=== PATIENT | female | born 1950 | race Caucasian/White ===

== ENCOUNTER 2025-04-08 11:19 | Inpatient (IN) | payer BC, MEDICARE ==
[2025-04-08] MEDS: Acetaminophen/HYDROcodone 325-5 MG Tab PO ONE (13:15)
[2025-04-08] MEDS: Ketorolac 30 MG/ML SDV IM ONE (13:18)
[2025-04-08 15:17] LABS: PLATELET COUNT,PLT 330.0 K/uL (130-375); RED BLOOD CELL COUNT 3.98 M/uL (3.77-5.24); WHITE BLOOD CELL COUNT,WBC 5.8 K/uL (3.2-11.0)
[2025-04-08] MEDS ORDERED: Sodium Chloride 0.9% 10 ML Syringe FLUSH PRN ×2 (15:57→16:12)
[2025-04-08] MEDS ORDERED: Ondansetron 4 MG/2 ML SDV IV PRN (16:12)
[2025-04-08] MEDS ORDERED: Naloxone 0.4 MG/ML SDV IVPUSH PRN (16:12)
[2025-04-08] MEDS: Heparin Sodium 5,000 Units/ML Vial SUBCUT SCH (17:02)
[2025-04-08] MEDS: Sennosides/Docusate Sodium 50-8.6 MG Tab PO SCH (21:12)
[2025-04-09 05:43] LABS: PLATELET COUNT,PLT 296.0 K/uL (130-375); RED BLOOD CELL COUNT 3.64 M/uL (3.77-5.24); WHITE BLOOD CELL COUNT,WBC 3.7 K/uL (3.2-11.0)
[2025-04-09 06:01] LABS: BLOOD UREA NITROGEN,BUN 15.0 mg/dL (7-18); CARBON DIOXIDE,CO2 31.0 mmol/L (21-32); CHLORIDE,CL 91.0 mmol/L (100-108); CREATININE 0.7 mg/dL (0.6-1.0); EST CRCL DRUG DOSING (CG) 73.69 mL/min; ESTIMATED GFR 91.0 mL/min (>60); GLUCOSE RANDOM 85.0 mg/dL (74-106); SODIUM,NA 130.0 mmol/L (140-148)
[2025-04-09 06:05] LABS: POTASSIUM,K 2.7 mmol/L (3.6-5.2)
[2025-04-09] MEDS: Potassium Chloride 20 MEQ Tab.ER PO ONE ×2 (08:47→13:34)
[2025-04-09] MEDS: Heparin Sodium 5,000 Units/ML Vial SUBCUT SCH (11:18)
[2025-04-10 05:58] LABS: BLOOD UREA NITROGEN,BUN 9.0 mg/dL (7-18); CARBON DIOXIDE,CO2 28.0 mmol/L (21-32); CHLORIDE,CL 99.0 mmol/L (100-108); CREATININE 0.6 mg/dL (0.6-1.0); EST CRCL DRUG DOSING (CG) 85.97 mL/min; ESTIMATED GFR 94.0 mL/min (>60); GLUCOSE RANDOM 86.0 mg/dL (74-106); POTASSIUM,K 3.6 mmol/L (3.6-5.2); SODIUM,NA 134.0 mmol/L (140-148)
[2025-04-10] MEDS ORDERED: fentaNYL 100 MCG/2 ML SDV ONE ×2 (07:28→08:59)
[2025-04-10] MEDS ORDERED: Propofol 200 MG/20 ML SDV ONE ×2 (07:28→08:44)
[2025-04-10] MEDS ORDERED: Midazolam 1 MG/ML 2 ML SDV ONE (07:29)
[2025-04-10] MEDS ORDERED: Lactated Ringers 1,000 ML ONE (09:27)
[2025-04-10] MEDS: Potassium Chloride 20 MEQ Tab.ER PO ONE (14:02)
[2025-04-11 06:06] LABS: PLATELET COUNT,PLT 258.0 K/uL (130-375); RED BLOOD CELL COUNT 3.37 M/uL (3.77-5.24); WHITE BLOOD CELL COUNT,WBC 5.2 K/uL (3.2-11.0)
[2025-04-11 06:16] LABS: BLOOD UREA NITROGEN,BUN 9.0 mg/dL (7-18); CARBON DIOXIDE,CO2 25.0 mmol/L (21-32); CHLORIDE,CL 99.0 mmol/L (100-108); CREATININE 0.7 mg/dL (0.6-1.0); EST CRCL DRUG DOSING (CG) 73.69 mL/min; ESTIMATED GFR 91.0 mL/min (>60); GLUCOSE RANDOM 90.0 mg/dL (74-106); POTASSIUM,K 4.4 mmol/L (3.6-5.2); SODIUM,NA 132.0 mmol/L (140-148)
[2025-04-11] MEDS: Magnesium Sulfate 2 GM/50 mL 2 GM in Premix Bag 1 BAG IV ONE (09:15)
[2025-04-11 14:45] VITALS: BP 102/75; PULSE 94
== END 2025-04-11 14:40 | disposition home or self-care (01) | DRG 522 ==
LOC: JP.ED 11:19 → JP.MS 14:53
PROVIDERS: ADMIT Hospitalist; ATTEND Internal Medicine
PROC: 0SRR0JA Replacement of Right Hip Joint, Femoral Surface with Synthetic Substitute, Uncemented, Open Approach (ICD-10-PCS; principal; 2025-04-08)
DX: S72.001A Fracture of unspecified part of neck of right femur, initial encounter for closed fracture (principal); E87.6 Hypokalemia; I10 Essential (primary) hypertension; H54.7 Unspecified visual loss; E78.00 Pure hypercholesterolemia, unspecified; Z98.890 Other specified postprocedural states; Z79.82 Long term (current) use of aspirin; Z98.49 Cataract extraction status, unspecified eye; Z79.899 Other long term (current) drug therapy; X58.XXXA Exposure to other specified factors, initial encounter
CPT/HCPCS: 73502 ×2; 73552 ×2; 96372; 99284; 99285; A9270 ×2; 36415; 72170; 72170-26; 80048; 83735; 84132; 85027; 93005; 93010; 97110-GP; 97116-GP; 97161-GP; 97165-GO; 97535-GO; 99222; 99232; 99238; C1776; J0665; J0690; J1171; J1644; J1885; J2250; J2704; J3010; J3475; J3480; J7030; J7120